=== PATIENT | male | born 1945 | race Caucasian/White ===

== ENCOUNTER → 2016-10-03 | Outpatient (CLI) | payer MEDICARE, BC, OTHER ==
[~2016-10-03] MED LIST: ACCUPRIL40MGTAB; ALDACTONE 25MG25 M1 PO; ALEVE 220MG220 MG PO; AMBIEN 5MG TABLE5 MG PO; ASPIRIN 32325 MG/TAB PO; CARDI-OMEGA1000 MG PO; CELEXA 20MG20 MG/TAB PO; COREG 25MG25 MG/TAB PO; COREG 3.123.125 MG/T PO; COZAAR 25MG25 MG/TAB PO; DEMADEX100 MG PO; DESYREL 50MG50 MG PO; DUO-KAPS1 CAP PO; FLOMAX 0.40.4 MG/CAP PO; LASIX 20MG TABL20 MG PO; LASIX 40MG TABL40 MG PO; LEVAQUIN 5500 MG/TA1 PO; LEVEMIR FLEXPEN SQ; LEVOXYL0.05 MG; MIRALAX PA17 GM/Dose PO; NITROSTAT0.4 MG/TAB SL; NOVOLOG 100U100 U/M1 SC; NOVOLOG FLEX100 U/ML SQ; PEPTO BISMOL262 MG PO; PLAVIX 75MG TAB75 MG PO; PLETAL 100MG T100 MG PO; REGLAN 10MG10 MG/TAB PO; SODIUM BICARBO650 MG PO; STRATTERA 25MG25 MG PO; TENORMIN 2525 MG/TAB PO; TOPROL XL 50MG50 MG; TRAZAMINE PO; TRIPLE ANTIBIOT1 O19 TP; VERELAN180 MG PO; VITAMIN C PUR1000 MG PO; VITAMIN E1000 U/CAP PO; WELLBUTRIN SR150 M1 PO; WELLBUTRIN XL150 MG PO; WELLBUTRIN XL300 M1 PO; ZANTAC 150MG T150 MG PO; ZAROXOLYN 2.52.5 MG; ZITHROMAX 250M250 MG PO; ZOCOR 40MG40 MG PO
== END ==
LOC: BHSO 09:19
DX: F33.42 Major depressive disorder, recurrent, in full remission (principal)

== ENCOUNTER 2016-12-07 12:58 | Outpatient (RCR) | payer MEDICARE, BC, OTHER | END 2016-12-11 | disposition home or self-care (01) | LOC: COL.CR | DX: Z48.812 Encounter for surgical aftercare following surgery on the circulatory system (principal); Z95.1 Presence of aortocoronary bypass graft ==

== ENCOUNTER → 2016-12-14 | Outpatient (CLI) | payer MEDICARE, BC, OTHER | LOC: BHSO 09:21 | DX: F33.42 Major depressive disorder, recurrent, in full remission (principal) ==

== ENCOUNTER 2017-01-27 16:22 | Outpatient (RCR) | payer MEDICARE, BC, OTHER | END 2017-02-17 15:40 | disposition home or self-care (01) | LOC: COL.CR 16:22 | DX: Z48.812 Encounter for surgical aftercare following surgery on the circulatory system (principal); Z95.1 Presence of aortocoronary bypass graft ==

== ENCOUNTER → 2017-03-15 | Outpatient (CLI) | payer MEDICARE, BC, OTHER | LOC: BHSO 09:01 | DX: F33.42 Major depressive disorder, recurrent, in full remission (principal) ==

== ENCOUNTER 2017-08-25 11:54 | Outpatient (RCR) | payer MEDICARE, BC, OTHER | END 2017-08-30 12:31 | disposition home or self-care (01) | LOC: COL.CR 11:54 | DX: I50.42 Chronic combined systolic (congestive) and diastolic (congestive) heart failure (principal) ==

== ENCOUNTER → 2017-09-14 | Outpatient (CLI) | payer MEDICARE, BC, OTHER | LOC: BHSO 08:57 | DX: F33.42 Major depressive disorder, recurrent, in full remission (principal) | CPT/HCPCS: G0463 ==

== ENCOUNTER → 2018-03-28 | Outpatient (CLI) | payer MEDICARE, BC, OTHER | LOC: BHSO 11:42 | DX: F33.42 Major depressive disorder, recurrent, in full remission (principal) ==

== ENCOUNTER → 2019-01-21 | Outpatient (CLI) | payer MEDICARE, BC, OTHER | LOC: BHSO 10:25 | DX: F33.1 Major depressive disorder, recurrent, moderate (principal) | CPT/HCPCS: G0463 ==

== ENCOUNTER → 2019-03-18 | Outpatient (CLI) | payer MEDICARE, BC, OTHER | LOC: BHSO 11:17 | DX: F33.41 Major depressive disorder, recurrent, in partial remission (principal) | CPT/HCPCS: G0463 ==

== ENCOUNTER → 2019-06-18 | Outpatient (CLI) | payer MEDICARE, BC, OTHER | LOC: BHSO 10:58 | DX: F33.41 Major depressive disorder, recurrent, in partial remission (principal) | CPT/HCPCS: G0463 ==

== ENCOUNTER → 2020-06-10 | Outpatient (CLI) | payer MEDICARE, BC, OTHER | LOC: BHSO 15:20 | DX: F33.42 Major depressive disorder, recurrent, in full remission (principal) ==

== ENCOUNTER 2021-01-22 14:12 | Emergency (ER) | payer MEDICARE, BC, OTHER ==
[~2021-01-22] VITALS: Ht 182.9 cm; Wt 63.6 kg
[2021-01-22] MEDS ORDERED: CEPHALEXIN500 M1 PO (15:20)
[2021-01-22 16:10] LABS: BASO % 0.4 % (0.0-2.0); EOS # 0.2 (0.0-0.7); EOS % 3.1 % (0-4.0); GRAN # 5.2 (1.4-6.5); GRAN % 75.9 % (42.2-75.2); HEMATOCRIT 40.9 % (42.0-52.0); HEMOGLOBIN 13.2 g/dl (13.5-18.0); LYMPH # 0.9 (1.2-3.4); LYMPH % 13.2 % (20.0-51.0); MEAN CELL VOLUME 97 fl (80.0-100.0); MEAN CORPUSCULAR HEMOGLOBIN 31 pg (27.0-31.0); MEAN CORPUSCULAR HGB CONC 32 g/dl (33.0-37.0); MEAN PLATELET VOLUME 11.6 fl (7.4-10.4); MONO # 0.5 (0.1-0.6); MONO % 7.1 % (1.7-9.3); PLATELET COUNT 150 K/mm3 (130-400); RED BLOOD COUNT 4.24 M/mm3 (4.20-5.60)
[2021-01-22 17:25] VITALS: BP 105/68; PULSE 69; TEMP 97.8
== END 2021-01-22 17:25 | disposition home or self-care (01) ==
LOC: COL.ER 14:12
PROVIDERS: Physician Assistant
DX: L03.115 Cellulitis of right lower limb (principal); E10.621 Type 1 diabetes mellitus with foot ulcer; E03.9 Hypothyroidism, unspecified; F03.90 Unspecified dementia, unspecified severity, without behavioral disturbance, psychotic disturbance, mood disturbance, and anxiety; G20 Parkinson's disease; I10 Essential (primary) hypertension; J44.9 Chronic obstructive pulmonary disease, unspecified; L97.519 Non-pressure chronic ulcer of other part of right foot with unspecified severity; Z87.891 Personal history of nicotine dependence; Z79.4 Long term (current) use of insulin; Z79.01 Long term (current) use of anticoagulants; Z79.890 Hormone replacement therapy; Z79.899 Other long term (current) drug therapy

== ENCOUNTER → 2021-01-28 | Outpatient (CLI) | payer MEDICARE, BC, OTHER ==
[~2021-01-28] MED LIST changes: +CEPHALEXIN500 M1 PO
== END ==
LOC: ZCOL.LAB 16:09
DX: L97.909 Non-pressure chronic ulcer of unspecified part of unspecified lower leg with unspecified severity (principal)

== ENCOUNTER 2021-03-27 18:17 | Emergency (ER) | payer MEDICARE, BC, OTHER ==
[~2021-03-27] VITALS: Ht 182.9 cm; Wt 79.5 kg
[2021-03-27 18:33] VITALS: TEMP 97.9
[2021-03-27 19:03] LABS: BILIRUBIN,TOTAL 0.5 mg/dL (0.0-1.0); CALCIUM 10.2 mg/dL (8.4-10.2); CREATININE, serum 1.36 (0.66-1.25); POTASSIUM 3.9 mmol/L (3.4-5.0); TOTAL PROTEIN 7.5 gm/dL (6.4-8.2)
[2021-03-27 19:14] LABS: COLLECTION METHOD CLEAN CATCH
[2021-03-27 19:27] LABS: BASO % 0.5 % (0.0-2.0); EOS # 0.1 (0.0-0.7); EOS % 1.7 % (0-4.0); GRAN # 4.3 (1.4-6.5); GRAN % 73.9 % (42.2-75.2); HEMATOCRIT 38.4 % (42.0-52.0); HEMOGLOBIN 12.4 g/dl (13.5-18.0); LYMPH # 0.9 (1.2-3.4); LYMPH % 15.4 % (20.0-51.0); MEAN CELL VOLUME 97 fl (80.0-100.0); MEAN CORPUSCULAR HEMOGLOBIN 31 pg (27.0-31.0); MEAN CORPUSCULAR HGB CONC 32 g/dl (33.0-37.0); MEAN PLATELET VOLUME 11.4 fl (7.4-10.4); MONO # 0.5 (0.1-0.6); MONO % 8.2 % (1.7-9.3); PLATELET COUNT 131 K/mm3 (130-400); RED BLOOD COUNT 3.98 M/mm3 (4.20-5.60); REDCELL DISTRIBUTION WIDTH-CV 15.5 % (11.5-14.5)
[2021-03-27 19:30] LABS: PH 6 (5-8); SQUAMOUS EPITHELIAL 0-2 /hpf; URINE APPEARANCE Clear; URINE BACTERIA None Seen /hpf; URINE BILIRUBIN Negative (NEGATIVE); URINE BLOOD Negative (NEGATIVE); URINE COLOR Straw; URINE GLUCOSE 3+ (NEGATIVE); URINE KETONE Negative (NEGATIVE); URINE LEUKOCYTE ESTERASE Negative (NEGATIVE); URINE NITRATE Negative (NEGATIVE); URINE PROTEIN(semi-quant) Negative (NEGATIVE); URINE RBC None Seen /hpf; URINE UROBILINOGEN Negative (NEGATIVE)
[2021-03-27 20:55] VITALS: BP 113/57; PULSE 68
== END 2021-03-27 20:55 | disposition home or self-care (01) ==
LOC: COL.ER 18:17
PROVIDERS: Family Medicine
DX: E10.649 Type 1 diabetes mellitus with hypoglycemia without coma (principal); I10 Essential (primary) hypertension; G20 Parkinson's disease; J44.9 Chronic obstructive pulmonary disease, unspecified; Z86.73 Personal history of transient ischemic attack (TIA), and cerebral infarction without residual deficits; Z79.82 Long term (current) use of aspirin; Z79.899 Other long term (current) drug therapy
CPT/HCPCS: J1815; J7030

== ENCOUNTER → 2021-09-11 | Outpatient (CLI) | payer MEDICARE, BC, OTHER | LOC: ZCOL.LAB 19:00 | DX: U07.1 COVID-19 (principal) ==

== ENCOUNTER → 2021-09-13 | Outpatient (CLI) | payer MEDICARE, BC, OTHER | LOC: ZCOL.LAB 06:52 | DX: R05.9 Cough, unspecified (principal); R50.9 Fever, unspecified ==